=== PATIENT | female | born 1975 | race Caucasian/White ===

== ENCOUNTER 2025-03-04 12:28 | Outpatient (CLI) | payer BC | END 2025-03-04 12:29 | disposition home or self-care (01) | LOC: CSHMAMMO 12:28 | PROVIDERS: ATTEND Family Medicine | DX: Z12.31 Encounter for screening mammogram for malignant neoplasm of breast (principal); Z98.82 Breast implant status | CPT/HCPCS: 77063; 77067 ==

== ENCOUNTER 2025-04-14 10:21 | Outpatient (CLI) | payer BC | END 2025-04-14 10:22 | disposition home or self-care (01) | LOC: CSHULT 10:21 | PROVIDERS: ATTEND Family Medicine | DX: R35.0 Frequency of micturition (principal); R39.198 Other difficulties with micturition | CPT/HCPCS: 76857 ==